=== PATIENT | male | born 1975 | race Caucasian/White ===

== ENCOUNTER 2020-04-02 03:09 | Inpatient (IN) ==
[2020-04-02] MEDS ORDERED: CLOPIDOGREL 300 MG TABLET PO STA (03:25)
[2020-04-02] MEDS ORDERED: ONDANSETRON 4 MG/2 ML VIAL IV STA (03:25)
[2020-04-02] MEDS ORDERED: ASPIRIN 325 MG TABLET PO STA (03:25)
[2020-04-02] MEDS ORDERED: MORPHINE 4 MG/1 ML VIAL IV STA (03:25)
[2020-04-02] MEDS ORDERED: NITROGLYCERIN SL 0.4 MG TABLET SL PRN (03:25)
[2020-04-02] MEDS ORDERED: HEPARIN 1,000 UNIT/1 ML VIAL IV STA (03:26)
[2020-04-02] MEDS ORDERED: HEPARIN 5,000 UNIT/1 ML VIAL ONE ×2 (03:28→04:09)
[2020-04-02] MEDS ORDERED: HEPARIN 5,000 UNIT/1 ML VIAL IV STA (03:28)
[2020-04-02] MEDS ORDERED: CLOPIDOGREL 300 MG TABLET ONE (03:28)
[2020-04-02] MEDS ORDERED: NITROGLYCERIN SL 0.4 MG TABLET SL ONE (03:28)
[2020-04-02 03:40] LABS: Basophils # 0.1 10*3/uL (0.0-0.2); Basophils % 0.4 % (0.0-0.8); Eosinophils # 0.2 10*3/uL (0.0-0.87); Eosinophils % 1.5 % (0.00-10.9); Hematocrit 53.8 VOL% (42.0-52.0); Hemoglobin 17.2 GM/DL (14.0-18.0); Immature Granulocytes % 0.3 %; Immature Granulocytes Absolute 0.03 #; Lymphocytes # 3.7 10*3/uL (1.4-4.0); Lymphocytes % 31.6 % (21.2-54.2); Mean Corpuscular Volume 90.7 FL (87-102); Mean Platelet Volume 9.7 FL (9.6-12.0); Monocytes % 8.1 % (1.7-12.7); Neutrophils % 58.1 % (38.7-73.9); Platelet Count 272 T/CUMM (130-400); Red Blood Count 5.93 MC/CUMM (3.8-5.5); Red Cell Distribution Width 13.8 % (9.3-17.3); White Blood Count 11.7 T/CUMM (4-12)
[2020-04-02 03:58] LABS: Albumin 3.5 G/DL (3.4-5.0); Bilirubin,Total 0.4 MG/DL (0.2-1.0); Calcium 8.3 MG/DL (8.5-10.1); Osmolality,Calculated 277.8 MOS/KG (273-304); Potassium 3.8 MMOL/L (3.5-5.1); Total Protein 7.1 G/DL (6.4-8.3)
[2020-04-02] MEDS ORDERED: LIDOCAINE 1% 20 ML VIAL ONE (03:58)
[2020-04-02] MEDS ORDERED: HEPARIN/NACL 0.9% 2 UNITS/ML 1,000 ML IV ONE ×2 (03:58→03:59)
[2020-04-02] MEDS ORDERED: fentaNYL 100 MCG/2 ML VIAL ONE (03:59)
[2020-04-02] MEDS ORDERED: MIDAZOLAM 2 MG/2 ML VIAL ONE ×2 (03:59→04:12)
[2020-04-02] MEDS ORDERED: EPTIFIBATIDE 20,000 MCG/10 ML VIAL ONE (04:17)
[2020-04-02] MEDS ORDERED: EPTIFIBATIDE 75 MG/100 ML BOTTLE IV ONE (04:17)
[2020-04-02] MEDS ORDERED: TICAGRELOR 90 MG TABLET ONE (04:35)
[2020-04-02] MEDS ORDERED: ONDANSETRON 4 MG/2 ML VIAL IV PRN (05:15)
[2020-04-02] MEDS ORDERED: MORPHINE 4 MG/1 ML VIAL IV PRN (05:15)
[2020-04-02] MEDS ORDERED: ACETAMINOPHEN 325 MG TABLET PO PRN (05:15)
[2020-04-02] MEDS ORDERED: ACETAMINOPHEN/CODEINE 300-30 MG TABLET PO PRN (05:15)
[2020-04-02] MEDS ORDERED: GLUCAGON 1 MG VIAL IM PRN (05:19)
[2020-04-02] MEDS ORDERED: DEXTROSE 50% 25 GM/50 ML VIAL IV PRN (05:19)
[2020-04-02] MEDS ORDERED: SODIUM CHLORIDE 0.9% 1,000 ML IV SCH (05:30)
[2020-04-02 06:37] LABS: Risk Ratio 3.5; VLDL CHOLESTEROL 20.6 MG/DL
[2020-04-02 06:40] LABS: Troponin I 4.35 NG/ML (0.00-0.045)
[2020-04-02] MEDS: INSULIN REGULAR 100 UNIT/ML SUBCUT SCH ×4 (08:36→20:34)
[2020-04-02] MEDS: METOPROLOL TARTRATE 25 MG TABLET PO SCH ×2 (09:47→20:18)
[2020-04-02 13:36] LABS: CKMB % 9.3 %
[2020-04-02 13:45] LABS: Troponin I 12.2 NG/ML (0.00-0.045)
[2020-04-02] MEDS: ROSUVASTATIN 20 MG TABLET PO SCH (20:17)
[2020-04-02] MEDS: TICAGRELOR 90 MG TABLET PO SCH (20:17)
[2020-04-02] MEDS: ZALEPLON 5 MG CAPSULE PO PRN (20:18)
[2020-04-02 21:58] LABS: Troponin I 8.11 NG/ML (0.00-0.045)
[2020-04-03 03:41] LABS: Basophils % 0.3 % (0.0-0.8); Eosinophils # 0.1 10*3/uL (0.0-0.87); Eosinophils % 1.3 % (0.00-10.9); Hematocrit 48.8 VOL% (42.0-52.0); Hemoglobin 16.4 GM/DL (14.0-18.0); Immature Granulocytes % 0.3 %; Immature Granulocytes Absolute 0.03 #; Lymphocytes # 2.1 10*3/uL (1.4-4.0); Lymphocytes % 22.7 % (21.2-54.2); Mean Corpuscular HGB Conc 33.6 GM/DL (32-36); Mean Platelet Volume 9.5 FL (9.6-12.0); Monocytes % 7.5 % (1.7-12.7); Neutrophils % 67.9 % (38.7-73.9); Platelet Count 216 T/CUMM (130-400); Red Blood Count 5.61 MC/CUMM (3.8-5.5); White Blood Count 9.1 T/CUMM (4-12)
[2020-04-03 04:04] LABS: Calcium 8.4 MG/DL (8.5-10.1); Osmolality,Calculated 272.8 MOS/KG (273-304); Potassium 3.8 MMOL/L (3.5-5.1)
[2020-04-03] MEDS: INSULIN REGULAR 100 UNIT/ML SUBCUT SCH ×4 (08:24→21:38)
[2020-04-03] MEDS: ENOXAPARIN 40 MG/0.4 ML SYRINGE SUBCUT SCH (09:14)
[2020-04-03] MEDS: ASPIRIN EC 81 MG TABLET PO SCH (09:14)
[2020-04-03] MEDS: METOPROLOL TARTRATE 25 MG TABLET PO SCH (09:14)
[2020-04-03] MEDS: TICAGRELOR 90 MG TABLET PO SCH ×2 (09:14→21:28)
[2020-04-03] MEDS: ROSUVASTATIN 20 MG TABLET PO SCH (21:28)
[2020-04-03] MEDS: METOPROLOL TARTRATE 50 MG TABLET PO SCH (21:29)
[2020-04-03] MEDS: ZALEPLON 5 MG CAPSULE PO PRN (21:29)
[2020-04-04 03:57] VITALS: BP 133/66
[2020-04-04 05:05] LABS: Basophils % 0.3 % (0.0-0.8); Eosinophils # 0.1 10*3/uL (0.0-0.87); Eosinophils % 1.9 % (0.00-10.9); Hematocrit 49.1 VOL% (42.0-52.0); Hemoglobin 16.3 GM/DL (14.0-18.0); Immature Granulocytes % 0.4 %; Immature Granulocytes Absolute 0.03 #; Lymphocytes % 27.1 % (21.2-54.2); Mean Corpuscular HGB Conc 33.2 GM/DL (32-36); Mean Corpuscular Volume 87.5 FL (87-102); Mean Platelet Volume 9.6 FL (9.6-12.0); Monocytes % 8.5 % (1.7-12.7); Neutrophils % 61.8 % (38.7-73.9); Platelet Count 210 T/CUMM (130-400); Red Blood Count 5.61 MC/CUMM (3.8-5.5); Red Cell Distribution Width 13.5 % (9.3-17.3); White Blood Count 7.4 T/CUMM (4-12)
[2020-04-04 05:13] LABS: Calcium 8.1 MG/DL (8.5-10.1); Osmolality,Calculated 269.1 MOS/KG (273-304); Potassium 4.1 MMOL/L (3.5-5.1)
[2020-04-04] MEDS: METOPROLOL TARTRATE 50 MG TABLET PO SCH (08:02)
[2020-04-04] MEDS: ASPIRIN EC 81 MG TABLET PO SCH (08:03)
[2020-04-04] MEDS: ENOXAPARIN 40 MG/0.4 ML SYRINGE SUBCUT SCH (08:03)
[2020-04-04] MEDS: TICAGRELOR 90 MG TABLET PO SCH (08:03)
[2020-04-04] MEDS: INSULIN REGULAR 100 UNIT/ML SUBCUT SCH (08:04)
[2020-04-04] MEDS ORDERED: PNEUMOCOCCAL VACCINE (13 VALENT) 0.5 ML SYRINGE IM ONE (10:51)
== END 2020-04-04 11:22 | disposition home or self-care (01) | DRG 247 ==
LOC: N.ED 03:09 → N.EDINP 03:57 → N.ICU 05:28
PROVIDERS: ADMIT Internal Medicine Cardiovascular Disease; ATTEND Internal Medicine Cardiovascular Disease
PROC: CLCCHCL (ICD-10-PCS; 2020-04-02 04:15)